=== PATIENT | male | born 1985 | race African-American/Black ===

== ENCOUNTER 2016-05-20 22:59 | Emergency (ER) | payer OTHER ==
[~2016-05-20] VITALS: Ht 170.2 cm; Wt 67.1 kg
[~2016-05-20 22:59] MED LIST: NOHOMEMEDICATIONS; PROPRANOLOL 1010 MG PO; ULTRAM 50MG TAB50 MG PO; ZOFRAN4 MG PO
[2016-05-20 23:10] VITALS: BP 109/69
[2016-05-21] MEDS ORDERED: IBUPROFEN 600600 M1 PO (00:15)
== END 2016-05-21 00:14 | disposition home or self-care (01) ==
LOC: ER 22:59
DX: S16.1XXA Strain of muscle, fascia and tendon at neck level, initial encounter (principal); F17.210 Nicotine dependence, cigarettes, uncomplicated; V89.2XXA Person injured in unspecified motor-vehicle accident, traffic, initial encounter; Y93.I9 Activity, other involving external motion; Y92.410 Unspecified street and highway as the place of occurrence of the external cause; Y99.9 Unspecified external cause status

== ENCOUNTER 2016-08-30 16:30 | Emergency (ER) | payer OTHER ==
[~2016-08-30] VITALS: Ht 170.2 cm; Wt 65.8 kg
[~2016-08-30 16:30] MED LIST changes: +IBUPROFEN 600600 M1 PO
[2016-08-30 17:05] LABS: URINE BILIRUBIN NEGATIVE (Negative); URINE BLOOD NEGATIVE (Negative); URINE COLOR YELLOW; URINE GLUCOSE-RANDOM* NEGATIVE (Negative); URINE KETONES NEGATIVE (Negative); URINE NITRITE NEGATIVE (Negative); URINE PROTEIN (DIPSTICK) NEGATIVE (Negative); URINE SPECIFIC GRAVITY 1.015 (1.003-1.035); URINE UROBILINOGEN 0.2 E.U./dl (0.2-1.0)
[2016-08-30] MEDS ORDERED: FLAGYL500 MG PO (17:11)
[2016-08-30 17:50] VITALS: BP 122/76
== END 2016-08-30 17:51 | disposition home or self-care (01) ==
LOC: ER 16:30
PROVIDERS: Nurse Practitioner Family
DX: N34.2 Other urethritis (principal); F17.210 Nicotine dependence, cigarettes, uncomplicated; F10.99 Alcohol use, unspecified with unspecified alcohol-induced disorder